=== PATIENT | female | born 1955 | race Caucasian/White ===

== ENCOUNTER 2017-01-31 20:44 | Emergency (ER) | payer OTHER ==
[2017-01-31] MEDS ORDERED: KETOROLAC TROMETHAMINE 60 MG/2 ML VIAL ONE (21:17)
[2017-01-31] MEDS ORDERED: ONDANSETRON 4 MG ODT TAB ONE (21:17)
[2017-01-31] MEDS ORDERED: HYDROMORPHONE HCL 0.5 MG/0.5 ML SYRINGE ONE (21:18)
--- NOTE | 2017-02-01 07:01 | CT ---
HEAD W/O CON History: Ground-level fall. Comparison: None. Procedure: 1 mm axial images were obtained through the head from the vertex to the base of the skull without intravenous contrast. Stacked reconstructed 5 mm images were then obtained in the axial, coronal and sagittal planes. Findings: The lateral ventricles are of normal size and shape without evidence of hydrocephalus. No evidence of midline shift is seen. No mass or mass-effect is observed. No evidence of intra- or extra-axial fluid collections or hemorrhage is identified. The jama/white differentiation is within expected. The basilar cisterns remain uneffaced. The posterior fossa structures are unremarkable. No acute osseous abnormalities are identified. Mild scalp swelling is evident in the right frontal region. Impression: 1. A small right frontal scalp hematoma. No findings of acute intracranial hemorrhage or calvarial fracture is visualized. The findings were called to the emergency room at 2144 hours, 01/31/2017, by [facility] radiology.
--- NOTE | 2017-02-01 07:05 | CT ---
C-SPINE W/O CON History: Ground-level fall. Procedure: 1 mm axial images were obtained through the cervical spine from the base of the skull to T1 with stacked reconstructed 2 mm images photographed in the axial, coronal and sagittal planes. Comparison: None. Findings: The osseous structures are intact without evidence of a discrete fracture. The alignment is normal. No significant subluxation is visualized. The facets align appropriately without evidence of a perched or jumped facet. The spinous processes appear to be intact. No prevertebral soft tissue swelling is observed. The pre-dens space is not widened. The odontoid process is intact. The thyroid gland and the visualized lung apices appear to be normal. Mid cervical spondylosis changes are present. There are minimal biapical pulmonary emphysematous changes also observed. Impression: 1. No discrete fracture or significant subluxation visualized. 2. Multilevel cervical spondylosis changes with posterior osteophyte formation, particularly evident at C3-4 and C4-5. 3. Minimal biapical pulmonary emphysematous changes. The findings were called to the emergency room at 2144 hours, 01/31/2017, by [facility].
--- NOTE | 2017-02-01 07:06 | RAD ---
KNEE- LEFT 4 OR MORE VIEWS HISTORY: Left knee pain after ground-level fall. COMPARISONS: None. FINDINGS: 4 views of the left knee were performed demonstrating bony osteopenia. The osseous structures appear to remain intact. The alignment is appropriate. The joint spaces are relatively well-maintained. No evidence of a significant knee joint effusion is observed. IMPRESSION: 1. Bony osteopenia. 2. Otherwise negative views of the left knee.
== END 2017-01-31 22:42 | disposition home or self-care (01) ==
LOC: ED 20:44
DX: S80.212A Abrasion, left knee, initial encounter (principal); S60.512A Abrasion of left hand, initial encounter; R51 Headache; M48.02 Spinal stenosis, cervical region; W01.0XXA Fall on same level from slipping, tripping and stumbling without subsequent striking against object, initial encounter; Y93.02 Activity, running; Y92.9 Unspecified place or not applicable
CPT/HCPCS: 73564; 72125; 70450; 99283 ×2; 96372 ×2; J1885; A9270; J1170